=== PATIENT | female | born 1985 | race Caucasian/White ===

== ENCOUNTER → 2018-04-17 | Outpatient (CLI) | payer OTHER ==
[2016-12-10 07:51] VITALS: BMI 28.7
[~2018-04-17] MED LIST: ACET-1718 PO; CYC10 PO; DICY20TA70 PO; DOCU100C49 PO; ETHI1TAB25; ETHI1TAB25 PO; IBUP800T37 PO; LEVO75TA73 PO; LINA145C PO; LINA290C PO; MIR; OMEP-218 PO; PER PO; POLY17PO25 PO; PRE10 PO; PREN-127 PO
[2018-04-17 09:45] LABS: PLATELET COUNT, AUTOMATED 300 K/uL (150-450)
== END ==
LOC: LAB 08:42
PROVIDERS: ATTEND Obstetrics & Gynecology
DX: Z34.91 Encounter for supervision of normal pregnancy, unspecified, first trimester (principal)
CPT/HCPCS: 36415; 81001; 84443; 85025; 86592; 86703; 86762; 86850; 86900; 86901; 87088; 87340

== ENCOUNTER → 2018-04-30 | Outpatient (CLI) | payer OTHER ==
[2016-12-10 07:51] VITALS: BMI 28.7
[~2018-04-30] MED LIST changes: +FLU60SYR36 IM
== END ==
LOC: LAB 15:35
PROVIDERS: ATTEND Obstetrics & Gynecology
DX: Z11.3 Encounter for screening for infections with a predominantly sexual mode of transmission (principal); Z11.8 Encounter for screening for other infectious and parasitic diseases
CPT/HCPCS: 87491; 87591

== ENCOUNTER → 2018-07-01 | Outpatient (CLI) | payer OTHER ==
[2016-12-10 07:51] VITALS: BMI 28.7
== END ==
LOC: LAB 15:14
PROVIDERS: ATTEND Obstetrics & Gynecology
DX: Z34.82 Encounter for supervision of other normal pregnancy, second trimester (principal); E03.9 Hypothyroidism, unspecified
CPT/HCPCS: 36415; 84443

== ENCOUNTER → 2018-07-16 | Outpatient (CLI) | payer OTHER ==
[2016-12-10 07:51] VITALS: BMI 28.7
[~2018-07-16] MED LIST changes: +TOBR5DRO43 OP
--- NOTE | 2018-07-16 15:43 | RADIOLOGY IMAGING REPORT ---
FACILITY: [facility] PATIENT NAME: Lilly Kent : 1985 MR: [id number] V: [id number] EXAM DATE: ORDERING PHYSICIAN: BOZENA SALAZAR TECHNOLOGIST: Location: [facility] Patient: Lilly Kent : 1985 Visit/Account:[id number] Date of Sevice: 07/16/2018 [facility] OB ANATOMICAL SURVEY HISTORY: Anatomic survey COMPARISON: None. TECHNIQUE: Transabdominal imaging was performed for assessment of the fetus and maternal pelvic s tructures. Transvaginal imaging was not performed. FINDINGS: Intrauterine gestations: One. presentation: Variable. heart rate: 152 bpm. Amniotic fluid volume: Normal; MATI 13.85 cm; MVP 4.97 cm. Placenta: Posterior and low-lying. Uterus: Gravid, otherwise grossly unremarkable where visualized. Maternal adnexa/ovaries: Grossly unremarkable, ovaries not visualized. Cervix: Grossly long and closed. Gestational Parameters: BPD: 5.07 cm, 74th percentile HC: 18.98 cm, 66th percentile AC: 17 cm, 82nd percentile FL: 3.59 cm, 65th percentile Average ultrasound age (AUA): 21 weeks/ four days Estimated age based on LMP: 20 weeks/ five days Estimated weight (EFW): 440 grams +/- 64 grams, 90th percentile Anatomic Survey: Intracranial structures, 4-chamber heart, stomach, kidneys, urinary bladder, spine, 3-vessel cord and cord insertion are unremarkable. Two upper and two lower extremities visualized. IMPRESSION: Single viable fetus in viable presentation with an estimated gestational age by measurements of 21 we eks and four days. Estimated age based on LMP is 20 weeks and five days. Posterior low-lying placenta Report Dictated By: Meghna Michaud MD at 07/16/2018 3:33 PM Report E-Signed By: Meghna Michaud MD at 07/16/2018 3:39 PM WSN:[id number]
== END ==
LOC: RAD 11:33
PROVIDERS: ATTEND Obstetrics & Gynecology
DX: Z34.82 Encounter for supervision of other normal pregnancy, second trimester (principal); Z3A.21 21 weeks gestation of pregnancy

== ENCOUNTER → 2018-09-10 | Outpatient (CLI) | payer OTHER ==
[2016-12-10 07:51] VITALS: BMI 28.7
[2018-09-10 12:37] LABS: PLATELET COUNT, AUTOMATED 204 K/uL (150-450)
== END ==
LOC: LAB 11:30
PROVIDERS: ATTEND Obstetrics & Gynecology
DX: O99.282 Endocrine, nutritional and metabolic diseases complicating pregnancy, second trimester (principal); E03.9 Hypothyroidism, unspecified
CPT/HCPCS: 36415; 82950; 84443; 85025

== ENCOUNTER → 2018-11-03 | Outpatient (CLI) | payer OTHER ==
[2016-12-10 07:51] VITALS: BMI 28.7
[~2018-11-03] MED LIST changes: +DIPH0.5D12 IM
== END ==
LOC: LAB 10:33
PROVIDERS: ATTEND Obstetrics & Gynecology
DX: Z36.85 Encounter for antenatal screening for Streptococcus B (principal)
CPT/HCPCS: 87081

== ENCOUNTER 2018-11-29 15:31 | Inpatient (IN) | payer OTHER ==
[~2018-11-29] VITALS: Ht 170.2 cm; Wt 93.0 kg
[~2018-11-29 15:31] MED LIST changes: -DIPH0.5D12 IM; +DIPH0.5S2 IM
[2018-11-29 15:50] VITALS: BP 132/71; Ht 170.2 cm; Wt 93.0 kg
[2018-11-29] MEDS ORDERED: LIDOCAINE 1% LOCAL 300 MG/30ML INJ PRN (16:10)
[2018-11-29] MEDS ORDERED: OXYTOCIN 30 UNIT/D5LR 500 ML 500 ML IV PRN (16:10)
[2018-11-29] MEDS ORDERED: fentaNYL CITR 100 MCG/2 ML AMP IVP PRN (16:10)
[2018-11-29] MEDS ORDERED: FAMOTIDINE(*) 20MG/50ML PREMIX 50 ML IVPB PRN (16:10)
[2018-11-29] MEDS ORDERED: METOCLOPRAMIDE 10 MG/2 ML SDV IVP PRN (16:10)
[2018-11-29] MEDS ORDERED: FLUSH 10 ML SYR IVP PRN (16:10)
[2018-11-29] MEDS ORDERED: LIDOCAINE/SOD BICARB 8.4% SYR SC PRN (16:10)
[2018-11-29] MEDS ORDERED: LIDO/EPI 2% MPF 1:200,000 20ML EPI PRN (16:15)
[2018-11-29] MEDS ORDERED: fentaNYL CITR 100 MCG/2 ML AMP IT PRN (16:15)
[2018-11-29] MEDS ORDERED: BUPIVACAINE 0.5% INJ 30ML VIAL EPI PRN (16:15)
[2018-11-29] MEDS ORDERED: LIDOCAINE/PF 2% 200MG/10ML AMP 200 MG/10 ML AMPUL EPI PRN (16:15)
[2018-11-29] MEDS ORDERED: FENTANYL/ROPIVACAINE 100 ML BAG EPI PRN (16:15)
[2018-11-29] MEDS ORDERED: BUPIVACAINE 0.25% MPF INJ EPI PRN (16:15)
[2018-11-29] MEDS ORDERED: OXYTOCIN 30 UNIT/D5LR 500 ML 500 ML ONE (16:18)
[2018-11-29] MEDS ORDERED: VANCOMYCIN(*) 1 GM VIAL 1 GM in NS(*) 0.9% 250 ML BAG 250 ML IVPB SCH (16:30)
[2018-11-29 16:36] LABS: PLATELET COUNT, AUTOMATED 243 K/uL (150-450)
[2018-11-29] MEDS: LR(*) 1000 ML BAG 1,000 ML IV SCH ×2 (16:42→17:20)
[2018-11-29] MEDS ORDERED: ROPIVACAINE 0.2% 20 ML VIAL ONE (17:01)
--- NOTE | 2018-11-29 18:23 | Anesthesia OB Pre-Anes Eval ---
History of Present Illness Anesthesia Start Date: November 29, 2018 Anesthesia Start Time: 17:06 OB Anesthesia Diagnosis: spontaneous ROM EDC: December 08, 2016 : 3 Para: 1 Vital Signs: Hematology Test 11/29/18 16:23 Red Blood Count 4.15 M/uL (4.17-5.56) Mean Corpuscular Volume 82.3 fL (80.0-96.0) Mean Corpuscular Hemoglobin 27.2 pg (26.0-33.0) Mean Corpuscular Hemoglobin Concent 33.0 g/dL (32.0-36.0) Red Cell Distribution Width 14.4 % (11.5-14.5) Mean Platelet Volume 8.5 fL (7.2-11.1) Neutrophils (%) (Auto) 70.9 % (39.4-72.5) Lymphocytes (%) (Auto) 20.4 % (17.6-49.6) Monocytes (%) (Auto) 7.2 % (4.1-12.4) Eosinophils (%) (Auto) 1.0 % (0.4-6.7) Basophils (%) (Auto) 0.5 % (0.3-1.4) Nucleated RBC Relative Count (auto) 0.0 /100WBC Neutrophils # (Auto) 7.9 K/uL (2.0-7.4) Lymphocytes # (Auto) 2.3 K/uL (1.3-3.6) Monocytes # (Auto) 0.8 K/uL (0.3-1.0) Eosinophils # (Auto) 0.1 K/uL (0.0-0.5) Basophils # (Auto) 0.1 K/uL (0.0-0.1) Nucleated RBC Absolute Count (auto) 0.00 K/uL Peripheral Blood Smear Yes Y/N Chemistry Test 11/29/18 16:23 White Blood Count 11.1 k/uL (4.5-11.0) Red Blood Count 4.15 M/uL (4.17-5.56) Hemoglobin 11.3 g/dL (12.0-16.0) Hematocrit 34.2 % (34.0-47.0) Mean Corpuscular Volume 82.3 fL (80.0-96.0) Mean Corpuscular Hemoglobin 27.2 pg (26.0-33.0) Mean Corpuscular Hemoglobin Concent 33.0 g/dL (32.0-36.0) Red Cell Distribution Width 14.4 % (11.5-14.5) Platelet Count 243 K/uL (150-450) Mean Platelet Volume 8.5 fL (7.2-11.1) Neutrophils (%) (Auto) 70.9 % (39.4-72.5) Lymphocytes (%) (Auto) 20.4 % (17.6-49.6) Monocytes (%) (Auto) 7.2 % (4.1-12.4) Eosinophils (%) (Auto) 1.0 % (0.4-6.7) Basophils (%) (Auto) 0.5 % (0.3-1.4) Nucleated RBC Relative Count (auto) 0.0 /100WBC Neutrophils # (Auto) 7.9 K/uL (2.0-7.4) Lymphocytes # (Auto) 2.3 K/uL (1.3-3.6) Monocytes # (Auto) 0.8 K/uL (0.3-1.0) Eosinophils # (Auto) 0.1 K/uL (0.0-0.5) Basophils # (Auto) 0.1 K/uL (0.0-0.1) Nucleated RBC Absolute Count (auto) 0.00 K/uL Peripheral Blood Smear Yes Y/N Pain Ratin Heart Tones: 157 Result Diagram: 11/29/18 1623 Height (Inches): 67 Weight (Pounds): 205 (Pre weight, 175lbs) BMI (kg/m2): 32 Past Medical History Medical History: no pertinent history, other (hypothyroid) Previous Anesthesia: general, epidural Attended Childbirth Classes?: No Hx Anesthesia Reactions: No Hx Family Anesthesia Reaction: No Home Meds Active Scripts Levothyroxine Sodium (LEVOTHYROXINE SODIUM) 75 Mcg Tablet, 75 MCG PO QDAY, #30 TAB-CAP 3 Refills Prov:BOZENA SALAZAR MD 11/23/18 Reported Medications Omeprazole Magnesium (PRILOSEC OTC) 20 Mg Tablet.dr, 1 TAB PO QDAY, TAB 12/10/16 Vits W-Ca,Fe,Fa(<1MG) ( VITAMINS) 1 Each Tablet, 1 EACH PO DAILY, TAB 12/10/16 Allergies: Coded Allergies: Penicillins (Verified Allergy, Mild, 09/18/11) Sulfa (Sulfonamide Antibiotics) (Verified Allergy, Mild, 09/18/11) Anesthesia OB ROS Airway Class: ll GI ROS: clear liquids Last Solids Date: November 29, 2018 Last Solids Time: 13:30 Endocrine ROS: thyroid disorder ASA Classification: 2 Assessment and Plan Anesthesia Plan: LEB Assessment Alert patient with "Norman" at her side. She is cooperative and able to maintain good positioning for epidural. She wishes to proceed despite delineated risks. RISHI VASQUEZ PILOT CONTROL OPERATOR November 29, 2018 18:23
[2018-11-29] MEDS ORDERED: RANI-366 PO (18:33)
--- NOTE | 2018-11-29 18:35 | Procedure Note ---
Anesthetic Placement Note Anesthesia Plan: LEB Permit for Anesthesia Signed: Yes Anesthesia Technique: Patient Sitting Anesthesia Prep: Chlorhexidine Interspace: L 3-4 Local Anesthetic: 1% Lidocaine, 25 Gauge Needle Amount Local - cc's: 2 Anesthesia Needle: 17g Touhy/Schliff Anesthesia Attempts: 1 (Ridirections x 2 for OS. ) Loss of Resistance: Normal Saline Depth of GREGORY (cm): 5.5 Epidural Needle Placement: CSF (None at loss of resistace via touhy and none after catheter threading, prior to test dose.) Catheter Type: Montoya - Spring Wound Epidural Dressing: Tegaderm, Tape Anesthesia Tray: Lot Number ([id number]), Expiration Date (2020-03-27), Reference Number ([id number]) Comment: Pt pain is reduced from 7/10 in 8 minutes after bolus dose. Perineal sensation relief was slower to set up, about 15 minutes. Teaching for use of self directed bolusing via pump done. Anesthesia Medications: Epidural Test Dose: 1.5 Lido/Epi (1:200,000) (3), Dose - mL (3ml), Time (1725), Negative Epidural Loading Dose: 0.2% Ropivicaine, Dose - ml (8), Time (1733) Epidural Infusion: 0.2% Ropivicaine, With Fentanyl 2mcg/ml, Start Time: (1744) Epidural Pump Setting: Bolus Dose - mL (6), Lockout - Minutes (20), Maintenance Rate - mL/hr (6), Maximum per Hour - mL (24) Complications: None RISHI VASQUEZ CANDY SUPERVISOR November 29, 2018 18:35
--- NOTE | 2018-11-29 19:58 | History & Physical ---
History of Present Illness Chief Complaint SROM and Labor History of Present Illness 33yo at 40w1d presents with SROM at 1445hrs and spontaneous labor. She reports LOF with clear fluid. No VB. +FM. No preeclampsia symptoms. PNC by IMG. PNR reviewed. c/b hypothyroid, hx GHTN, GBS positive. History Patient's Blood Type: B Positive Rubella Status: Immune Group B Strep Screen: Positive (Resistant to clinda and erythro -> Needs vanco) Obstetrical History: Hx 2 SVDs and 1 SAB Past Medical History: See PNR Allergies: Coded Allergies: Penicillins (Verified Allergy, Mild, 09/18/11) Sulfa (Sulfonamide Antibiotics) (Verified Allergy, Mild, 09/18/11) Social History: No T/E/D. . Family History: Patient reports no known family medical history. Med Rec Home Meds Active Scripts Levothyroxine Sodium (LEVOTHYROXINE SODIUM) 75 Mcg Tablet, 75 MCG PO QDAY, #30 TAB-CAP 3 Refills Prov:BOZENA SALAZAR MD 11/23/18 Reported Medications Ranitidine Hcl (ZANTAC) 150 Mg Tablet, 150 MG PO HS, TAB 11/29/18 Omeprazole Magnesium (PRILOSEC OTC) 20 Mg Tablet.dr, 1 TAB PO QDAY, TAB 12/10/16 Vits W-Ca,Fe,Fa(<1MG) ( VITAMINS) 1 Each Tablet, 1 EACH PO DAILY, TAB 12/10/16 Review of Systems Constitutional: No Fever Neurological: No Syncope Eyes: No Vision Change Cardiovascular: No Chest Pain, No Palpitations Respiratory: No Shortness of Breath, No Cough Gastrointestinal: No Nausea, No Vomiting, No Diarrhea Genitourinary: No Dysuria Musculoskeletal: No Pain Psychiatric: No Depression, No Anxiety Exam General Exam Vital Signs Vital Signs Date Time Temp Pulse Resp B/P (MAP) Pulse Ox O2 Delivery O2 Flow Rate FiO2 11/29/18 15:50 98.6 78 16 132/71 (91) 95 Room Air General Apperance: Alert/Awake/No Acute Distress Neuro: No Gross deficits Eyes: Normal Extraocular Movement & Vison Cardiovascular: Regular Rate and Rhythm Respiratory: No Respiratory Distress, Clear to Auscultation Abdomen: Gravid - Non-Tender : Normal Musculoskeletal: No Weakness/Pain Extremities: No Cyanosis,Clubbing or Edema Integumentary: Skin Intact without Lesions or Rash Psychological: Alert & Oriented X3, Appropriate Mood & Affect Cervical Dialation: 9 Cervical Effacement (%): 100 Cervical Consistency: Soft Cervical Position: Mid Station: +1 Presentation: Vertex Uterine Contractions(Q min): 3 Uterine Contraction Strength: Strong UC Resting Tone: Soft Fetus FHT Category: I Medical Decision Making Data Points Result Diagram: 11/29/18 1623 Pre-Admit Course Medical Record Review: Yes VTE Prophylasis: Adult Deep Vein Thrombosis/Pulmonary: No Assessment and Plan Problems: (1) SROM (spontaneous rupture of membranes) Assessment & Plan: 33yo at 40w1d presents with SROM at 1445hrs and spontaneous labor. Patient presented at 6cm and is now anterior lip. Epidural in place and comfortable. Anticipate . (2) GBS (group B Streptococcus carrier), +RV culture, currently Status: Acute Assessment & Plan: Resistant to clinda and erythro. Vancomycin prophylaxis started. (3) 40 weeks gestation of BOZENA SALAZAR MD November 29, 2018 19:58
--- NOTE | 2018-11-29 20:52 | OB Delivery Note ---
Delivery Note Vaginal Delivery Type: Spont. Vaginal Delivery Delivery Date: November 29, 2018 Delivery Time: 20:21 Estimated Gestational Age(wks): 40.1 Length of Labor Stage II (hrs): 0.5 Labor Stage III (minutes): 10 Delivery Anesthesia: Epidural Sex: Male Apgars: 1 Minute (8), 5 Minute (9) Repair Needed: 2nd Degree Estimated Blood Loss: 300 Delivery Complications: Nuchal Cord Shipping Specialist in Attendence: BOZENA Lombardi MD November 29, 2018 20:52
--- NOTE | 2018-11-29 20:58 | Anesthesia Progress Note ---
Progress/Maintenance Anesthesia Note Date: November 29, 2018 Anesthesia Note Time: 19:00 Pain Intensity: 2 Pump: On Pump Rate (ML/HR): 6 (Has used bolus feature x 1) Motor Level: Bending Knees-Bilateral Position: Left, Tilt Anesthesia Treatment: Pt expresses satisfaction with level of pain relief. RISHI VASQUEZ CRNA November 29, 2018 20:58
[2018-11-29] MEDS ORDERED: DIPHTH/TETANUS/ACEL. PERTUSSIS IM ONE (21:00)
[2018-11-29] MEDS ORDERED: MAGNESIUM HYDROXIDE* 30ML UDCP PO PRN (21:00)
[2018-11-29] MEDS ORDERED: HYDROCORTISONE 2.5% CR 30GM TB PR PRN (21:00)
[2018-11-29] MEDS ORDERED: INFLUENZA VIRUS VAC 0.5ML SYR IM ONLY ONE (21:00)
[2018-11-29] MEDS ORDERED: LANOLIN OINT 7 GM TUBE TP PRN (21:00)
[2018-11-29] MEDS ORDERED: MEASLES,MUMP,RUBELLA VAC 0.5ML SC ONE (21:00)
[2018-11-29] MEDS ORDERED: ACETAMINOPHEN 325 MG TAB PO PRN (21:00)
[2018-11-29] MEDS ORDERED: GLYCERIN/WITCH HAZEL LEAF 1 PK TOP PRN (21:00)
[2018-11-29] MEDS ORDERED: BENZOCAINE 20% 60 ML BTL TP PRN (21:00)
--- NOTE | 2018-11-29 21:00 | Anesthesia Progress Note ---
Progress/Maintenance Anesthesia Note Date: November 29, 2018 Anesthesia Note Time: 20:58 Pain Intensity: 0 Pump: Off Motor Level: Bending Knees-Bilateral Position: Semi-Fowlers Anesthesia Treatment: Delivery at 2020 male, active crying . 2nd degree vaginal tear RISHI Christianson CRNA November 29, 2018 21:00
[2018-11-29] MEDS ORDERED: OXYTOCIN 10 UNIT/ML SDV IM STA (21:21)
[2018-11-29] MEDS ORDERED: METHYLERGONOVINE MAL 0.2MG/ML IM STA (21:21)
[2018-11-29] MEDS ORDERED: OXYTOCIN 10 UNIT/ML SDV ONE (21:22)
[2018-11-29] MEDS ORDERED: METHYLERGONOVINE MAL 0.2MG/ML ONE (21:23)
[2018-11-29] MEDS ORDERED: METHYLERGONOVINE MAL 0.2MG/ML IM ONE (21:45)
[2018-11-29] MEDS ORDERED: OXYTOCIN 10 UNIT/ML SDV IM ONE (21:50)
[2018-11-29] MEDS: DOCUSATE CALCIUM 240 MG CAP PO SCH (22:04)
[2018-11-30] VITALS (9 sets, daily range): BP systolic 89–128; BP diastolic 50–74
--- NOTE | 2018-11-30 03:17 | DELIVERY NOTE ---
DELIVERY DATE: November 29, 2018 SURGEON: Asia Roland MD ANESTHESIA: Epidural by Kaci Lopez CRNA PREOPERATIVE DIAGNOSIS Intrauterine at 40 weeks and 1 day, presenting in spontaneous active labor. POSTOPERATIVE DIAGNOSES 1. Intrauterine at 40 weeks and 1 day, presenting in spontaneous active labor. 2. Delivery of a viable male infant at 2020 hours weighing 8lb 8 oz with Apgars of 8 at one minute and 9 at five minutes. PROCEDURE 1. Spontaneous vaginal delivery. 2. Repair of second-degree midline laceration. ESTIMATED BLOOD LOSS 300 mL. INDICATIONS FOR PROCEDURE This patient is a 33-year-old 4, para 2-0-1-2, who presented at 40 weeks and 1 day in spontaneous active labor. She experienced spontaneous rupture of membranes at 1445 hours prior to arrival. At the time of arrival, she was noted to be 6, 70, and -2. She is group B strep positive and has a penicillin allergy. There was resistance to clindamycin and erythromycin. Therefore, the patient was administered vancomycin prophylaxis at the time of admission. She received an epidural for anesthesia. She was allowed to progress to complete at 1948 hours on her own. She therefore was prepared for delivery. DESCRIPTION OF PROCEDURE The patient was properly identified and placed in the dorsal lithotomy position and prepped and draped in the usual fashion for a vaginal delivery. She was asked to push and was able to deliver the 's vertex spontaneously in the KAYLIE position over an intact perineum. A nuchal cord was noted and delivered around the infant's vertex. The anterior shoulder delivered easily, which was then the 's left shoulder, followed by delivery of the posterior arm, which had a compound presentation. The remainder of the was easily delivered. The had spontaneous cry and spontaneous movement of all four extremities. The 's oropharynx and nasopharynx were bulb-suctioned. The infant was dried and stimulated and passed to the mother's abdomen, where nursing personnel was in attendance. After two minutes, the cord was clamped x2 and cut by the father of the baby. Cord blood was then obtained and passed off the table. Examination of the vaginal vault revealed a second-degree midline laceration. Pitocin was started through the IV fluid to help firm the uterus. The placenta was not yet ready to be . Therefore, the midline laceration was repaired with a 3-0 Vicryl in the normal fashion. The placenta was then ready to be delivered and was easily delivered spontaneously without difficulty. Significant prolapse was noted at this time, as the cervix was to the vaginal introitus at the time of repair. Therefore, a vaginal packing was utilized to further evaluate the more proximal aspect of the vagina and cervix, without any lesions. There was a small arterial bleed right at the vaginal introitus, which was made hemostatic with 2-0 Vicryl. Once this was completed, the patient was placed in the supine position and the procedure was terminated. The patient tolerated this procedure well and recovered in Labor and Delivery with the . All sponge and needle counts were correct at the end of this procedure. GALINDOD
[2018-11-30] MEDS: IBUPROFEN 800 MG TAB PO SCH ×3 (05:26→21:19)
[2018-11-30] MEDS ORDERED: IBUPROFEN 800 MG TAB PO SCH (06:00)
[2018-11-30] MEDS: APAP/HYDROCODONE 325/5 TAB PO PRN ×4 (06:40→18:39)
[2018-11-30] MEDS ORDERED: HYDROmorphone HCL 2 MG/ML SDV IVP PRN (07:40)
[2018-11-30] MEDS ORDERED: HYDROmorphone HCL 2 MG/ML SDV ONE (07:40)
--- NOTE | 2018-11-30 08:07 | OB/GYN Progress Note ---
OB Subjective Progress Notes Subjective Doing well. Pain controlled with oral medications. Tolerating regular diet. Ambulating. Voiding. No preeclampsia symptoms. She had increased lochia throughout the night requiring methergine x 1 and pitocin 10 units. OB Objective Physical Exam Vital Signs Date Time Temp Pulse Resp B/P (MAP) Pulse Ox O2 Delivery O2 Flow Rate FiO2 11/30/18 07:15 98.2 66 16 113/67 (82) 95 Room Air Intake and Output 11/30/18 07:00 Intake Total 4750 ml Output Total 1022 ml Balance 3728 ml Intake Oral 2400 ml IV Total 2350 ml Output Urine Total 900 ml Estimated Blood Loss 62 ml Other 60 ml # Voids 2 General Appearance: Alert/Awake/No Acute Distress Neurological: No Gross deficits Eyes: Normal Extraocular Movement & Vison Cardiovascular: Normal Rhythm & Peripheral Pulses, Regular Rate and Rhythm Respiratory: No Respiratory Distress, Clear to Auscultation Abdomen: Fundus Firm, Tender (Due to excessive uterine massage) : Normal (No bleeding from the laceration repair) Extremities: No Cyanosis,Clubbing or Edema Integumentary: Skin Intact without Lesions or Rash Psychological: Alert & Oriented X3, Appropriate Mood & Affect Result Diagram: 11/29/18 1623 Assessment and Plan Problems: (1) examination following vaginal delivery Assessment & Plan: PPD#1 s/p . Doing well. Exam of laceration and vagina reveals no active bleeders. I suspect she had atony that has now resolved. Co ntinue routine orders. BOZENA SALAZAR MD November 30, 2018 08:07
[2018-11-30] MEDS: DOCUSATE CALCIUM 240 MG CAP PO SCH ×2 (08:51→21:00)
--- NOTE | 2018-11-30 15:10 | NUR ---
computerized charting downtime from [id number] see paper charting.
[2018-12-01 02:30] VITALS: BP 111/64
[2018-12-01] MEDS: IBUPROFEN 800 MG TAB PO SCH ×2 (05:36→13:38)
[2018-12-01 07:05] VITALS: BP 115/73
--- NOTE | 2018-12-01 07:42 | Anesthesia Post Eval Note ---
Anesthesia Post Eval Note Hematology Test 11/29/18 16:23 Red Blood Count 4.15 M/uL (4.17-5.56) Mean Corpuscular Volume 82.3 fL (80.0-96.0) Mean Corpuscular Hemoglobin 27.2 pg (26.0-33.0) Mean Corpuscular Hemoglobin Concent 33.0 g/dL (32.0-36.0) Red Cell Distribution Width 14.4 % (11.5-14.5) Mean Platelet Volume 8.5 fL (7.2-11.1) Neutrophils (%) (Auto) 70.9 % (39.4-72.5) Lymphocytes (%) (Auto) 20.4 % (17.6-49.6) Monocytes (%) (Auto) 7.2 % (4.1-12.4) Eosinophils (%) (Auto) 1.0 % (0.4-6.7) Basophils (%) (Auto) 0.5 % (0.3-1.4) Nucleated RBC Relative Count (auto) 0.0 /100WBC Neutrophils # (Auto) 7.9 K/uL (2.0-7.4) Lymphocytes # (Auto) 2.3 K/uL (1.3-3.6) Monocytes # (Auto) 0.8 K/uL (0.3-1.0) Eosinophils # (Auto) 0.1 K/uL (0.0-0.5) Basophils # (Auto) 0.1 K/uL (0.0-0.1) Nucleated RBC Absolute Count (auto) 0.00 K/uL Peripheral Blood Smear Yes Y/N Chemistry Test 11/29/18 16:23 White Blood Count 11.1 k/uL (4.5-11.0) Red Blood Count 4.15 M/uL (4.17-5.56) Hemoglobin 11.3 g/dL (12.0-16.0) Hematocrit 34.2 % (34.0-47.0) Mean Corpuscular Volume 82.3 fL (80.0-96.0) Mean Corpuscular Hemoglobin 27.2 pg (26.0-33.0) Mean Corpuscular Hemoglobin Concent 33.0 g/dL (32.0-36.0) Red Cell Distribution Width 14.4 % (11.5-14.5) Platelet Count 243 K/uL (150-450) Mean Platelet Volume 8.5 fL (7.2-11.1) Neutrophils (%) (Auto) 70.9 % (39.4-72.5) Lymphocytes (%) (Auto) 20.4 % (17.6-49.6) Monocytes (%) (Auto) 7.2 % (4.1-12.4) Eosinophils (%) (Auto) 1.0 % (0.4-6.7) Basophils (%) (Auto) 0.5 % (0.3-1.4) Nucleated RBC Relative Count (auto) 0.0 /100WBC Neutrophils # (Auto) 7.9 K/uL (2.0-7.4) Lymphocytes # (Auto) 2.3 K/uL (1.3-3.6) Monocytes # (Auto) 0.8 K/uL (0.3-1.0) Eosinophils # (Auto) 0.1 K/uL (0.0-0.5) Basophils # (Auto) 0.1 K/uL (0.0-0.1) Nucleated RBC Absolute Count (auto) 0.00 K/uL Peripheral Blood Smear Yes Y/N Vital Signs Date Time Temp Pulse Resp B/P (MAP) Pulse Ox O2 Delivery O2 Flow Rate FiO2 12/01/18 02:30 97.2 75 16 111/64 (80) Room Air 11/30/18 15:42 95 Pt able to participate in Eval: Yes Cardiovascular Status: Satisfactory Respiratory Status: Satisfactory Pain Managment: Satisfactory PO Nausea/Vomiting: Satisfactory Temperature Management: Satisfactory Mental Status: Satisfactory, Alert, Oriented X3 Post-Op Hydration Status: Satisfactory, Tolerating PO Well, Voiding w/o Difficulty Anesthesia Type: LEB Anesthesia Tolerance: This interview was performed 11/30/2018 @ 1200, and charted today, for computer downtime, at time of interview. The pt is also seen today and is without changes, remains stable.Signs of infection are reviewed and she agrees to seek medical attention for these or for persistant headache. RISHI VASQUEZ CRNA December 01, 2018 07:42
--- NOTE | 2018-12-01 08:27 | OB/GYN Progress Note ---
OB Subjective Progress Notes Subjective Doing well. Pain controlled with oral medications. Tolerating regular diet. Ambulating. Voiding. Normal lochia. No preeclampsia symptoms. OB Objective Physical Exam Vital Signs Date Time Temp Pulse Resp B/P (MAP) Pulse Ox O2 Delivery O2 Flow Rate FiO2 12/01/18 07:05 97.6 79 18 115/73 (87) 12/01/18 02:30 Room Air 11/30/18 15:42 95 Intake and Output 12/01/18 07:00 Intake Total 2000 ml Balance 2000 ml Intake Oral 2000 ml # Voids 1 General Appearance: Alert/Awake/No Acute Distress Neurological: No Gross deficits Eyes: Normal Extraocular Movement & Vison Cardiovascular: Normal Rhythm & Peripheral Pulses, Regular Rate and Rhythm Respiratory: No Respiratory Distress, Clear to Auscultation Abdomen: Soft, Non-Tender, Non-Distended, Fundus Firm Extremities: No Cyanosis,Clubbing or Edema Integumentary: Skin Intact without Lesions or Rash Psychological: Alert & Oriented X3, Appropriate Mood & Affect Result Diagram: 11/29/18 1623 Assessment and Plan Problems: (1) examination following vaginal delivery Assessment & Plan: PPD#2. Meeting milestones. Desires discharge to home today. Discussed routine expectations. Questions answered. Follow up in clinic in 2wks for check. BOZENA SALAZAR MD December 01, 2018 08:27
[2018-12-01] MEDS ORDERED: IBUP800T37 PO (08:29)
[2018-12-01] MEDS ORDERED: LOR5/325 PO (08:29)
--- NOTE | 2018-12-01 08:36 | OB/GYN Discharge Summary ---
Discharge Summary Reason for Hosp/Final Diag: (1) examination following vaginal delivery Hospital Course & Plan: PPD#2. Meeting milestones. Desires discharge to home today. Discussed routine expectations. Questions answered. Follow up in clinic in 2wks for check. Lates Vital Signs Vital Signs Date Time Temp Pulse Resp B/P (MAP) Pulse Ox O2 Delivery O2 Flow Rate FiO2 12/01/18 07:05 97.6 79 18 115/73 (87) 12/01/18 02:30 Room Air 11/30/18 15:42 95 Weight (Pounds): 205 (Pre weight, 175lbs) Result Diagram: 11/29/18 8581 Condition: Improved Discharge: Home, Self Snf Meds Active Scripts Hydrocodone Bit/Acetaminophen (HYDROCODON-ACETAMINOPHEN 5-325) 1 Each Tablet, 1 EACH PO Q4-6H PRN for pain, #20 TAB 0 Refills Prov:BOZENA SALAZAR MD 12/01/18 Levothyroxine Sodium (LEVOTHYROXINE SODIUM) 75 Mcg Tablet, 75 MCG PO QDAY, #30 TAB-CAP 3 Refills Prov:BOZENA SALAZAR MD 11/23/18 Reported Medications Ranitidine Hcl (ZANTAC) 150 Mg Tablet, 150 MG PO HS, TAB 11/29/18 Omeprazole Magnesium (PRILOSEC OTC) 20 Mg Tablet.dr, 1 TAB PO QDAY, TAB 12/10/16 Vits W-Ca,Fe,Fa(<1MG) ( VITAMINS) 1 Each Tablet, 1 EACH PO DAILY, TAB 12/10/16 Follow up Referrals: OFFICE ADMINISTRATION INSTRUCTOR - In Two Weeks @ [facility] with BOZENA SALAZAR MD Discharge Diet: As Tolerates Discharge Activity: Pelvic Rest BOZENA SALAZAR MD December 01, 2018 08:36
[2018-12-01] MEDS: DOCUSATE CALCIUM 240 MG CAP PO SCH (08:58)
[2018-12-01 13:39] VITALS: BP 109/59
== END 2018-12-01 15:40 | disposition home or self-care (01) | DRG 807 ==
LOC: OB 15:31
PROVIDERS: ADMIT Obstetrics & Gynecology; ATTEND Obstetrics & Gynecology
PROC: 10E0XZZ Delivery of Products of Conception, External Approach (ICD-10-PCS; principal; 2018-11-29)
PROC: 0KQM0ZZ Repair Perineum Muscle, Open Approach (ICD-10-PCS; 2018-11-29)
DX: O99.824 Streptococcus B carrier state complicating childbirth (principal); Z37.0 Single live birth; O69.81X0 Labor and delivery complicated by cord around neck, without compression, not applicable or unspecified; O34.523 Maternal care for prolapse of gravid uterus, third trimester; O67.8 Other intrapartum hemorrhage; O70.1 Second degree perineal laceration during delivery; O75.89 Other specified complications of labor and delivery; O99.284 Endocrine, nutritional and metabolic diseases complicating childbirth; E03.9 Hypothyroidism, unspecified; Z3A.40 40 weeks gestation of pregnancy; Z88.0 Allergy status to penicillin; Z88.2 Allergy status to sulfonamides
CPT/HCPCS: 36415; 59025; 85025; 86850; 86900; 86901; J1170; J2210; J2590; J2795; J3370; J7050; J7120